=== PATIENT | female | born 1955 | race Caucasian/White ===

== ENCOUNTER → 2018-03-19 | Day surgery (SDC) | payer OTHER ==
[~2018-03-19] MED LIST: Lactated Ringers 1,000 ML IV SCH; Propofol 200 MG/20 ML SDV IV ONE
--- NOTE | 2018-03-19 13:56 | OR ---
DATE OF OPERATION: 03/19/2018 PREOPERATIVE DIAGNOSIS: 1. GASTROESOPHAGEAL REFLUX DISEASE. 2. SCREENING COLONOSCOPY. POSTOPERATIVE DIAGNOSIS: 1. GASTROESOPHAGEAL REFLUX DISEASE. 2. SCREENING COLONOSCOPY. SURGEON: Josh Spain MD PROCEDURE: 1. EGD WITH BIOPSY X2. 2. FULL-LENGTH COLONOSCOPY. ANESTHESIA: CLINICAL ENGINEER. COMPLICATIONS: None. SPECIMEN: 1. Antral biopsy x2. 2. CECIL. FINDINGS: 1. Full-length EGD. 2. Antral gastritis, active and moderate. 3. Mild hiatal hernia with spontaneous GERD. No distal esophagitis, reflux, or Brown's changes. 4. Normal full-length colonoscopy. RECOMMENDATIONS: The patient will be placed on proton pump therapy and treated for her gastritis. Recommend routine colonoscopy screenings every 10 years. INDICATIONS: The patient was in for a physical. She admits to having some issues with reflux and dysphagia. Kenyetta Yeager sent her for diagnostic EGD and screening colonoscopy. DESCRIPTION OF PROCEDURE: The patient was prepped and draped, placed in the left lateral decubitus position. A lubricated Olympus gastroscope inserted over bit, advanced to the cricopharyngeus area, and with patient swallow, intubated in the esophagus. The esophageal lining was benign in its entire course. Z- line crisp and sharp around 37 cm. No distal esophagitis, stricturing, ulceration, or Brown's changes seen. There was a mild- sized hiatal hernia with spontaneous GERD. The scope was advanced into the stomach through the pylorus into the second portion of the duodenum. This and the duodenal bulb were unremarkable. The scope was brought back into the stomach and retroflexed. The upper fundus and cardia were benign. Upon straightening, the rest of the fundus was grossly benign. The antrum did show chronic gastritis which was active and moderate in severity. No ulceration or erosions seen. Two truck sales representative biopsies were taken along with a CLOtest. Air was then suctioned from the stomach and the scope removed without complication. A lubricated Olympus colonoscope was then inserted and easily advanced to the cecum. Direct visualization of the ileocecal valve and appendiceal orifice was accomplished. The bowel prep was fine. Upon withdrawal of the scope, throughout the length of the colon, I could find no signs of polyps, mass, ulceration, or bleeding sites. No vascular abnormalities or signs of colitis. There were no significant diverticula. The rectal vault appeared benign. Retroflexion showed no perianal lesions. Air was suctioned, scope removed without complication. ILIANA/AIDEE /[id number]
== END ==
LOC: CC.SDS 09:32
PROVIDERS: ATTEND Family Medicine
DX: Z12.11 Encounter for screening for malignant neoplasm of colon (principal); K21.9 Gastro-esophageal reflux disease without esophagitis; K29.50 Unspecified chronic gastritis without bleeding; B96.81 Helicobacter pylori [H. pylori] as the cause of diseases classified elsewhere; K44.9 Diaphragmatic hernia without obstruction or gangrene; M19.90 Unspecified osteoarthritis, unspecified site; I10 Essential (primary) hypertension; E55.9 Vitamin D deficiency, unspecified; E78.5 Hyperlipidemia, unspecified; E66.9 Obesity, unspecified; Z68.32 Body mass index [BMI] 32.0-32.9, adult; Z88.5 Allergy status to narcotic agent; Z88.8 Allergy status to other drugs, medicaments and biological substances; Z79.82 Long term (current) use of aspirin; Z79.890 Hormone replacement therapy; Z79.899 Other long term (current) drug therapy; Z98.890 Other specified postprocedural states; Z87.891 Personal history of nicotine dependence
CPT/HCPCS: 43239; 45378; 87081; J2704; J7120

== ENCOUNTER 2023-11-19 07:08 | Day surgery (SDC) | payer OTHER ==
[~2023-11-19 07:08] MED LIST changes: -Lactated Ringers 1,000 ML IV SCH; +Lidocaine 2% with EPINEPHrine 1:100,000 20 ML MDV INJECT SCH; -Propofol 200 MG/20 ML SDV IV ONE
[2023-11-19] MEDS: Lactated Ringers 1,000 ML IV SCH (07:59)
[2023-11-19] MEDS ORDERED: Midazolam 1 MG/ML 2 ML SDV ONE (09:20)
[2023-11-19] MEDS ORDERED: fentaNYL 50 MCG/ML SDV ONE ×2 (09:20)
[2023-11-19] MEDS ORDERED: Propofol 200 MG/20 ML SDV ONE ×2 (09:20)
[2023-11-19] MEDS ORDERED: Ondansetron 4 MG/2 ML SDV ONE (09:20)
[2023-11-19] MEDS ORDERED: ePHEDrine 50 MG/ML SDV ONE (09:20)
[2023-11-19] MEDS ORDERED: Lidocaine 2% with EPINEPHrine 1:100,000 20 ML MDV INJECT SCH (09:30)
[2023-11-19] MEDS: Lidocaine 2% with EPINEPHrine 1:200,000 20 ML SDV INJECT SCH (09:40)
[2023-11-19] MEDS: Bacitracin Oint 1 GM U/D Packet TOP ONE (11:12)
== END 2023-11-19 11:37 | disposition home or self-care (01) ==
LOC: CC.SDS 07:08
PROVIDERS: ATTEND Ophthalmology
DX: H02.834 Dermatochalasis of left upper eyelid (principal); H02.831 Dermatochalasis of right upper eyelid; H02.409 Unspecified ptosis of unspecified eyelid; K21.9 Gastro-esophageal reflux disease without esophagitis; I10 Essential (primary) hypertension; E78.00 Pure hypercholesterolemia, unspecified; Z79.82 Long term (current) use of aspirin; Z79.899 Other long term (current) drug therapy; Z88.8 Allergy status to other drugs, medicaments and biological substances
CPT/HCPCS: J2250; J2405; J2704; J3010; J3490; J7120

== ENCOUNTER → 2024-01-05 | Day surgery (SDC) | payer OTHER ==
[2024-01-05] MEDS: Lidocaine 1% 30 ML SDV ONE (12:05)
[2024-01-05] MEDS: Lidocaine 1% 30 ML SDV INJECT ONE (12:26)
== END ==
LOC: CC.SDS 10:07
PROVIDERS: ATTEND Family Medicine
DX: I83.811 Varicose veins of right lower extremity with pain (principal); I10 Essential (primary) hypertension; K21.9 Gastro-esophageal reflux disease without esophagitis; E78.5 Hyperlipidemia, unspecified; Z79.899 Other long term (current) drug therapy
CPT/HCPCS: C1888; J3490

== ENCOUNTER → 2024-01-19 | Day surgery (SDC) | payer OTHER ==
[2024-01-19] MEDS: Lidocaine 1% 30 ML SDV INJECT SCH (10:11)
[2024-01-19] MEDS: SODIUM TETRADECYL SULFATE INJECT SCH (10:57)
== END ==
LOC: CC.SDS 08:41
PROVIDERS: ATTEND Family Medicine
DX: I87.2 Venous insufficiency (chronic) (peripheral) (principal); I83.813 Varicose veins of bilateral lower extremities with pain; K21.9 Gastro-esophageal reflux disease without esophagitis; E78.5 Hyperlipidemia, unspecified; I10 Essential (primary) hypertension; Z88.5 Allergy status to narcotic agent; Z88.8 Allergy status to other drugs, medicaments and biological substances; Z79.82 Long term (current) use of aspirin; Z79.899 Other long term (current) drug therapy
CPT/HCPCS: C1888; J3490